=== PATIENT | male | born 1970 | race Caucasian/White ===

== ENCOUNTER 2019-10-11 00:23 | Emergency (ER) | payer OTHER ==
[~2019-10-11] VITALS: Ht 172.7 cm; Wt 99.8 kg
[2019-10-11 00:27] VITALS: Ht 172.7 cm; Wt 99.8 kg
[2019-10-11 01:23] LABS: PLATELET COUNT 309 x10^3mcL (130-400); RED CELL DISTRIBUTION WIDTH 12.2 % (11.5-14.5)
[2019-10-11 01:37] LABS: CALCIUM 8.8 mg/dL (8.5-10.1); CARBON DIOXIDE 21.2 mmol/L (21-32); CHLORIDE SERUM 102 mmol/L (98-107); CREATININE SERUM 0.8 mg/dL (0.7-1.3); GFR1 > 60 mL/min; GLUCOSE SERUM 101 mg/dL (74-106); POTASSIUM SERUM 4.2 mmol/L (3.5-5.1); SODIUM SERUM 137 mmol/L (136-145)
[2019-10-11 01:38] LABS: BASOPHIL % 2.1 % (0-2)
[2019-10-11 01:42] LABS: ALBUMIN 4.1 g/dL (3.4-5.0); ALKALINE PHOSPHATASE 51 U/L (46-116); ALT/SGPT 33 U/L (16-63); AST/SGOT 19 U/L (15-37); BILIRUBIN TOTAL 0.09 mg/dL (0.20-1.00)
[2019-10-11 04:18] VITALS: BP 135/87
== END 2019-10-11 04:18 | disposition home or self-care (01) ==
LOC: ED 00:23
PROVIDERS: Emergency Medicine
DX: R11.2 Nausea with vomiting, unspecified (principal); R45.1 Restlessness and agitation; Z88.5 Allergy status to narcotic agent
CPT/HCPCS: J1200; J2405; J7030

== ENCOUNTER 2019-12-21 13:48 | Inpatient (IN) | payer OTHER ==
[~2019-12-21] VITALS: Ht 172.7 cm; Wt 105.2 kg
[2019-12-21 14:06] VITALS: Ht 172.7 cm; Wt 105.2 kg
--- NOTE | 2019-12-21 14:26 | NUR ---
PT TO ED FOR EVAL OF CHEST PAIN. PT STATES PAIN STARTED IN THE AM AT APPROX 9AM. CRAMP LIKE PAIN. PT DESCRIBES " IT FEELS LIKE A [place] HORSE THAT DOES NOT GO AWAY" STARTED AT 4/10 IN AM AND UPON ARRIVAL TO ED PT STATES 8/10. NON RADIAITNG. POSITING OF COMFORT IS SITTING AT 90 DEGREES. NO NAUSEA OR VOMITING. SKIN WARM AND DRY. SIDE RAILS UP X 2. PT PLACED ON CM. CONTINUE TO MONITOR.
[2019-12-21 14:44] LABS: BASOPHIL % 0.4 % (0-2); PLATELET COUNT 296 x10^3mcL (130-400); RED CELL DISTRIBUTION WIDTH 13.4 % (11.5-14.5)
[2019-12-21 14:46] LABS: CALCIUM 8.9 mg/dL (8.5-10.1); CARBON DIOXIDE 25.3 mmol/L (21-32); CHLORIDE SERUM 101 mmol/L (98-107); CREATININE SERUM 0.9 mg/dL (0.7-1.3); GFR1 > 60 mL/min; GLUCOSE SERUM 111 mg/dL (74-106); POTASSIUM SERUM 3.8 mmol/L (3.5-5.1); SODIUM SERUM 137 mmol/L (136-145)
[2019-12-21 14:51] LABS: ALBUMIN 4.3 g/dL (3.4-5.0); ALKALINE PHOSPHATASE 52 U/L (46-116); ALT/SGPT 38 U/L (16-63); AST/SGOT 13 U/L (15-37); BILIRUBIN TOTAL 0.43 mg/dL (0.20-1.00); HDL CHOLESTEROL 40 mg/dL (40-60); LIPASE 98 IU/L (73-393); TOTAL PROTEIN, SERUM 7.9 g/dL (6.4-8.2); TRIGLYCERIDES 149 mg/dL (<150)
[2019-12-21 14:52] LABS: CHOLESTEROL 225 mg/dL (<200); CHOLESTEROL/HDL RATIO 5.6; T3 TOTAL 1.55 ng/mL
--- NOTE | 2019-12-21 14:55 | NUR ---
MEDICATED PT PER MD ORDERS, SEE EMAR. PT VERBALIZED UNDERSTANDING OF MEDICATION TEACHING.
[2019-12-21 15:02] LABS: FREE T4 1.06 ng/dL (0.76-1.46); FREE THYROXINE INDEX 2.5 ug/dL (1.4-4.5); T4(THYROXINE) 7.4 ug/dL (4.7-13.3)
--- NOTE | 2019-12-21 15:25 | NUR ---
PT REPORTED PAIN IS "STILL BAD." PT STATED ITS 11/17 AT THIS TIME. MD AWARE. AWAITING FURTHER ORDERS.
[2019-12-21 16:03] LABS: microscopic required? YES; urine erythrocyte TRACE (NEGATIVE)
--- NOTE | 2019-12-21 16:35 | NUR ---
PT REPORTS IMPROVED PAIN, STATED "THE MORPHINE JUST TOOK THE EDGE OFF." STATED CHEST/EPIGASTRIC PAIN IS 5/10 AT THIS TIME. PT ON FULL CM, SINUSE TACHY CARDIA NOTED, MD AWARE. WILL CONT TO MONITOR.
--- NOTE | 2019-12-21 18:00 | NUR ---
MD AT THE BEDSIDE DISCUSSING PLAN OF CARE.
--- NOTE | 2019-12-21 18:15 | NUR ---
LAMIN LEO AT THE BEDSIDE FOR EKG.
--- NOTE | 2019-12-21 19:18 | NUR ---
REPORT TEODORO TO ADRIAN MULLER WHO WILL ASSUME FURHTER CARE OF THIS PT.
--- NOTE | 2019-12-21 19:32 | NUR ---
PATIENT REPORTS CONTINUED PAIN, DESCRIBED A "CRAMP IN THE MIDDLE OF MY CHEST". DR. SANFORD MADE AWARE OF PATIENT'S PAIN AT THIS TIME. PER DR. SANFORD TO ADMINISTER NITRO SUBLINGUAL FOR PAIN. PT IS AWAKE, AAOX4, RESP E/U, NAD NOTED. SPEAKING IN FULL CLEAR SENTENCES, MOVING ALL EXTREMITIES APPROPRIATELY.
--- NOTE | 2019-12-21 19:34 | NUR ---
PATIENT MEDICATED FOR PAIN PER EMAR. PT VERBALIZED UNDERSTANDING OF MEDICATION PRIOR TO ADMINISTRATION. PT REMAINS ON FULL HAND HOSE CUTTER AND PULSE OX. CALL LIGHT IN REACH. NAD NOTED.
--- NOTE | 2019-12-21 20:13 | NUR ---
PT BEING MOVED VIA GURNEY TO T2A BY LAMIN OLEA
--- NOTE | 2019-12-21 20:31 | NUR ---
RECIEVED REPORT FROM ADRIAN MULLER. WILL ASSUME CARE OF PT AT THIS TIME. VSS, NO AD NOTED. WILL CONTINUE TO MONITOR.
[2019-12-21] MEDS ORDERED: AMLODIPINE BES1 TAB PO (20:33)
[2019-12-21] MEDS ORDERED: PAROXETINE30 M1 PO (20:33)
[2019-12-21] MEDS ORDERED: POMEGRANATE250 MG PO (20:33)
[2019-12-21] MEDS ORDERED: ZESTRIL10 MG PO (20:34)
--- NOTE | 2019-12-21 21:08 | NUR ---
MEDICATED PT PER MD ORDERS, PLEASE SEE EMAR.
[2019-12-21 23:25] VITALS: BP 132/82
--- NOTE | 2019-12-21 23:45 | NUR ---
PT ARRIVED ON THE FLOOR FROM ER VIA GUERNEY ACCOMPANIED BY NURSE. PT IS ADMITTED FOR C/O CHEST PAIN. HE IS AWAKE, ALERT,ORIENTED X4 W/ CLEAR SPEECH. HE DEIED HAVING HEADACHE AND DIZZINESS. NO FACIAL DROOP. LUNGS CTA. NO SOB NOTED BUT PT REQUESTED TO HAVE NASAL CANNULA IN PLACE FOR NOW. HE IS SATTING 99% ON O2 AT 2L. PT STATED CHEST PAIN IS 3/10 AND 7/10 WHEN HE MOVES OR TAKES DEEP BREATH. ALSO STATED PAIN IS LIKE PULLING THE MUSCLE". HE DENIED DYSURIA. W/ IVF NS INFUSING VIA RTAC. PT ORIENTED TO ROOM AND INSTRUCTED ON THE USE OF CALL LIGHT.
--- NOTE | 2019-12-22 05:34 | NUR ---
PT SLEPT IN LONG INTERVALS. SHE STATED SHE STILL FEELS CHEST PAIN BUT MINIMAL AND TOLERABLE. NO OTHER DISCOMFORT MENTIONED. IVF NS INFUSING AT 100 CC/HR VIA RTAC. ALL NEEDS ATTENDED TO.
[2019-12-22 06:02] VITALS: BP 129/83
--- NOTE | 2019-12-22 07:25 | NUR ---
RECEIVED PT FROM KARYN MULLER. PT IS AAOX4. PT ON TELE #[id number]. PT ON RA W/ NO SOB OR DISTRESS. IV TO RAC. IV CDI AND PATENT, HEPLOCKED. PT IS STABLE WITH NO DISTRESS NOTED AT THIS TIME. ALL SAFETY AND COMFORT MEASURES IN PLACE. BED IN LOW POSITION, 2 SIDE RAILS UP. CALL LIGHT WITH IN REACH. ALL QUESTIONS AND CONCERNS ADDRESSED. WILL CONTINUE TO MONITOR PT.
[2019-12-22 08:33] VITALS: BP 124/78
[2019-12-22 08:56] LABS: AMPHETAMINE QUAL UR NONE DETECTED (See below)
[2019-12-22 08:57] LABS: CALCIUM 8.6 mg/dL (8.5-10.1); CHLORIDE SERUM 103 mmol/L (98-107); CREATININE SERUM 0.9 mg/dL (0.7-1.3); GFR1 > 60 mL/min; GLUCOSE SERUM 158 mg/dL (74-106); PHOSPHOROUS 2.6 mg/dL (2.5-4.9); POTASSIUM SERUM 3.8 mmol/L (3.5-5.1); SODIUM SERUM 141 mmol/L (136-145)
[2019-12-22 09:11] LABS: BASOPHIL % 0.3 % (0-2); PLATELET COUNT 252 x10^3mcL (130-400); RED CELL DISTRIBUTION WIDTH 13.6 % (11.5-14.5)
--- NOTE | 2019-12-22 09:50 | NUR ---
IN TO SEE PT AND GIVE SCHEDULED MEDICATIONS. ECHO IN TO SEE PT. WILL CONTINUE TO MONTIOR PT.
[2019-12-22 12:55] VITALS: BP 139/95
[2019-12-22] MEDS ORDERED: MOT400 PO (17:31)
[2019-12-22] MEDS ORDERED: PRI20 PO (17:32)
[2019-12-22 18:22] VITALS: BP 139/95
--- NOTE | 2019-12-22 18:35 | NUR ---
PT DC IN STABLE CONDITION. PT VERBALIZED UNDERSTANDING OF DC INSTRUCTIONS. IV D/C. TELE MONITOR RETURNED AND REMOVED. ID BANDS REMOVED. ALL QUESTIONS AND CONCERNS ADDRESSED. ALL NEEDS MET AT THIS TIME. WILL CONTINUE TO STEPHANE PT.
--- NOTE | 2019-12-22 18:40 | NUR ---
PT DC IN STABLE CONDITION. ALL BELONGINGS SENT HOME W/ PT. ACCOMPANIED TO LOBBY DOWN BY FUNDRAISING SPECIALIST.
== END 2019-12-22 18:37 | disposition home or self-care (01) | DRG 207 ==
LOC: ED 13:48 → DU 20:05
PROVIDERS: Specialist; ADMIT Family Medicine; ATTEND Family Medicine
DX: I31.9 Disease of pericardium, unspecified (principal); F29 Unspecified psychosis not due to a substance or known physiological condition; M94.0 Chondrocostal junction syndrome [Tietze]; K21.9 Gastro-esophageal reflux disease without esophagitis; I10 Essential (primary) hypertension; F41.9 Anxiety disorder, unspecified; K44.9 Diaphragmatic hernia without obstruction or gangrene; Z88.5 Allergy status to narcotic agent; Z79.899 Other long term (current) drug therapy
CPT/HCPCS: 83880; 84439; G0378; J1885; J2270; J2405; J3010; J3490; J7030; Q0092; Q9967